=== PATIENT | male | born 1990 | race Caucasian/White ===

== ENCOUNTER 2017-03-28 13:28 | Inpatient (IN) | payer OTHER ==
[~2017-03-28] VITALS: Ht 177.8 cm; Wt 67.8 kg
[2017-03-28 15:00] VITALS: BP 115/70
--- NOTE | 2017-03-28 15:20 | NUR ---
26 year old MALE admitted to room # 427 for stabilization. Reports an addiction to HEROIN AND FENTANYL last used 24 HRS hours prior to admission. Compliant with admission procedure. ASSESSMENT COMPLETE. SKIN INTACT WITH NO WOUNDS. PT NOT A CANDIDATE FOR PNEUMO VACCINATION. WANTS FLU VACCINATION ON DISCHARGE. HOME MEDICATIONS VERIFIED WITH PHARMACIST AT [facility] IN [facility]. DR GUERRA NOTIFIED.
[2017-03-28 15:50] LABS: BASO % 0.5 % (0.0-1.0); EOS # 0.2 10*3/uL (0.0-0.4); EOS % 2.7 % (1.0-4.0); HEMATOCRIT 42.9 % (42.0-52.0); HEMOGLOBIN 14.3 g/dl (14.0-18.0); LYMPH # 2.8 10*3/uL (1.3-4.4); LYMPH % 44.5 % (27.0-41.0); MEAN CELL VOLUME 92.5 fl (80.0-94.0); MEAN CORPUSCULAR HGB 30.8 pg (27.0-31.0); MEAN CORPUSCULAR HGB CONC 33.3 g/dl (33.0-37.0); MEAN PLATELET VOLUME 9.5 fl (9.6-12.3); MONO # 0.7 10*3/uL (0.1-1.0); MONO % 11.1 % (3.0-9.0); NEUT # 2.6 10*3/uL (2.3-7.9); PLATELET COUNT AUTOMATED 193 10*3/uL (130-400); RED BLOOD COUNT 4.64 10*6/uL (4.50-5.90); WHITE BLOOD COUNT 6.4 10*3/uL (4.8-10.8)
[2017-03-28] MEDS ORDERED: GABAPENTIN600 MG PO (15:56)
[2017-03-28 16:05] LABS: ALBUMIN 3.1 gm/dl (3.1-4.5); ALKALINE PHOSPHATASE 68 U/L (45-117); BUN 8 mg/dl (7-24); CHLORIDE 104 mmol/L (98-107); CREATININE 0.71 mg/dL (0.70-1.30); LIPASE 66 U/L (73-393); POTASSIUM 3.9 mmol/L (3.5-5.1); SGOT/AST 24 IU/L (3-35); SGPT/ALT 36 U/L (12-78); SODIUM 139 mmol/L (136-145); TOTAL PROTEIN 6.7 gm/dL (6.4-8.2)
[2017-03-28 16:09] LABS: ETHYL ALCOHOL < 3.0 mg/dl (<3)
--- NOTE | 2017-03-28 16:10 | NUR ---
SPOKE TO DR GUERRA AND REQUESTED NICORETTE INHALER FOR PT.
[2017-03-28 16:15] LABS: BILIRUBIN 1+ (NEGATIVE); BLOOD NEGATIVE (NEGATIVE); CLARITY CLEAR (CLEAR); COLOR YELLOW (YELLOW); GLUCOSE NEGATIVE (NEGATIVE); KETONE NEGATIVE (NEGATIVE); LEUKO ESTERASE NEGATIVE (NEGATIVE); NITRITE NEGATIVE (NEGATIVE); SPECIFIC GRAVITY 1.025 (1.005-1.030); UROBILINOGEN 0.2 E.U./dl (0.2-1.0)
[2017-03-28 16:23] LABS: URINE AMPHETAMINES < 1000 (1000ng/ml); URINE BARBITURATES < 200 (200ng/ml); URINE BENZODIAZEPINES < 200 (200ng/ml); URINE CANNABINOIDS (THC) < 50 (50ng/ml); URINE COCAINE < 300 (300ng/ml); URINE METHADONE < 300 (300ng/ml); URINE OPIATES > 300 (300ng/ml)
[2017-03-28 16:25] LABS: URINE PHENCYCLIDINE < 25 (25ng/ml)
--- NOTE | 2017-03-28 16:25 | NUR ---
D/C PLANNING: PATIENT STATED THAT HE IS PLANNING ON GOING INTO A [facility] IN [place] AND IS ALSO LOOKING INTO IOP ALSO. PATIENT IS AWARE THAT TRANSPORATION IS HIS RESPONSIBILITY AFTER DISCHARGE. STANLEY BARRIENTOS B.A. CUSTOMER TRAINING SPECIALIST
[2017-03-28 16:31] LABS: BACTERIA 2+; CALCIUM OXALATE CRYSTALS 1+; MUCOUS TRACE; RBC 0-2 rbc/hpf (0-2)
--- NOTE | 2017-03-28 17:25 | NUR ---
PT GIVEN REQUIP, ROBAXIN, AND VISTARIL FOR REPORTED SYMPTOMS OF ANXIETY, MUSCLE PAINS AND RESTLESS LEGS.
[2017-03-28 20:00] VITALS: BP 125/63
--- NOTE | 2017-03-28 23:00 | NUR ---
LAB RESULTS AND ORDERS REVIEWED.
[2017-03-29] VITALS: BP 117/68
[2017-03-29 04:00] VITALS: BP 119/64
[2017-03-29 08:00] VITALS: BP 132/91
--- NOTE | 2017-03-29 08:20 | NUR ---
Patient displaying withdrawal symptoms, including: anxiety, restlessness, and muscle aches. Scheduled subutex provided. Will continue to monitor medication effectiveness.
--- NOTE | 2017-03-29 09:20 | NUR ---
PT COMPLAINING OF ABD PAIN, MUSCLE ACHES, AND RESTLESSNESS. MEDICATED WITH ROBAXIN, VISTARIL, AND BENTYL. WILL MONITOR FOR EFFECTIVENESS.
[2017-03-29 12:00] VITALS: BP 132/80
--- NOTE | 2017-03-29 12:00 | NUR ---
PT RESTING IN BED, NO DISTRESS NOTED. PT STATES SOME REDUCTION IN WITHDRAWAL SYMPTOMS. WILL CONTINUE TO MONITOR.
--- NOTE | 2017-03-29 15:28 | NUR ---
Patient displaying withdrawal symptoms, including: irritability, anxiousness, restlessness and muscle aches. Scheduled/PRN medications provided. Will continue to monitor medication effectiveness.
[2017-03-29 16:00] VITALS: BP 142/85
--- NOTE | 2017-03-29 18:00 | NUR ---
PT RESTING IN BED, NO DISTRESS NOTED. CALL LIGHT TERESSA CUNNINGHAM.
[2017-03-29 20:00] VITALS: BP 122/75
--- NOTE | 2017-03-29 20:00 | NUR ---
PATIENT RESTING IN BED. A&O X3. PLEASANT AND COOPERATIVE WITH CARE, RESPIRATIONS EASY/REG, NO SXS OF DISTRESS. SEE SHIFT ASSESSMENT. CALL LIGHT IN REACH. WILL MONITOR.
--- NOTE | 2017-03-29 20:06 | NUR ---
MEDICATED WITH PRN MOTRIN ORDERED FOR PATIENT C/O BACK PAIN RATED A 10
--- NOTE | 2017-03-29 21:35 | NUR ---
Patient reports the following symptoms of withdrawal: body aches, leg pain, nausea and cravings. Patient given scheduled/PRN medication to control withdrawal symptoms. Close observation will be maintained.
--- NOTE | 2017-03-29 22:45 | NUR ---
Patient resting. Responding to scheduled medications with fewer complaints of pain and anxiety.
[2017-03-30] VITALS: BP 126/76
--- NOTE | 2017-03-30 03:27 | NUR ---
24 HOUR CHART CHECK COMPLETE
[2017-03-30 08:00] VITALS: BP 122/66
[2017-03-30 09:40] VITALS: BP 145/63
[2017-03-30 12:00] VITALS: BP 113/64
--- NOTE | 2017-03-30 12:08 | NUR ---
PATIENT COMFORTABLE WITHOUT ANY C/O WITHDRAWL SYMPTOMS. STATED HE DOES NOT NEED ANY PRN MEDICATIONS AT THIS TIME. WILL CONTINUE TO MONITOR.
[2017-03-30 16:00] VITALS: BP 126/68
--- NOTE | 2017-03-30 17:34 | NUR ---
PATIENT WAS UP TO SHOWER. SCHEDULED MEDICATIONS GIVEN. PATIENT STATES HE IS FINE AND ONLY C/O ACHINESS IN HIS LOWER BACK. HE SAID MOTRIN DIDN'T HELP AND HE WILL TOUGH IT OUT. WILL CONTINUE TO MONITOR.
--- NOTE | 2017-03-30 19:49 | NUR ---
PT RECEIVED MOTRIN AND ROBAXIN FOR C/O OF BACK PAIN AND MUSCLE ACHES.
[2017-03-30 20:00] VITALS: BP 121/75
--- NOTE | 2017-03-30 20:00 | NUR ---
ASSUMED CARE OF PATIENT. ASSESSMENT COMPLETE. MEDICATED FOR BACK PAIN, NO OTHER COMPLAINTS. PRN MEDS REVIEWED. CALL LIGHT IN REACH. WILL CONTINUE TO MONITOR.
--- NOTE | 2017-03-30 21:34 | NUR ---
PT STATES PAIN MEDS AND MUSCLES RELAXERS WERE INEFFECTIVE FOR BACK PAIN AND ACHES.
[2017-03-31] VITALS: BP 117/67
--- NOTE | 2017-03-31 02:27 | NUR ---
SLEEPING. NO DISTRESS NOTED. CALL LIGHT IN REACH. WILL CONTINUE TO MONITOR.
[2017-03-31 04:00] VITALS: BP 114/58
[2017-03-31 06:16] LABS: BASO # 0.1 10*3/uL (0.0-0.1); BASO % 0.9 % (0.0-1.0); EOS # 0.2 10*3/uL (0.0-0.4); EOS % 2.5 % (1.0-4.0); HEMATOCRIT 47.4 % (42.0-52.0); HEMOGLOBIN 15.4 g/dl (14.0-18.0); LYMPH # 2.2 10*3/uL (1.3-4.4); LYMPH % 32.8 % (27.0-41.0); MEAN CELL VOLUME 94.8 fl (80.0-94.0); MEAN CORPUSCULAR HGB 30.8 pg (27.0-31.0); MEAN CORPUSCULAR HGB CONC 32.5 g/dl (33.0-37.0); MEAN PLATELET VOLUME 10.2 fl (9.6-12.3); MONO # 0.7 10*3/uL (0.1-1.0); MONO % 10.6 % (3.0-9.0); NEUT # 3.5 10*3/uL (2.3-7.9); NEUT % 52.8 % (47.0-73.0); PLATELET COUNT AUTOMATED 211 10*3/uL (130-400); WHITE BLOOD COUNT 6.7 10*3/uL (4.8-10.8)
[2017-03-31 06:31] LABS: CREATININE 0.78 mg/dL (0.70-1.30)
[2017-03-31 08:00] VITALS: BP 115/65
[2017-03-31] MEDS ORDERED: ROPINIROLE HYD0.5 MG PO (11:05)
[2017-03-31] MEDS ORDERED: ATARAX,VISTARIL50 MG PO (11:05)
[2017-03-31] MEDS ORDERED: ZOFRAN 4 MG ED2 TAB PO (11:05)
--- NOTE | 2017-03-31 11:51 | NUR ---
[facility] Discharge instructions reviewed with patient/family. Patient receptive and verbalizes understanding. Follow-up care arranged. Written instructions given to patient/family. TREVER DOUGLAS
== END 2017-03-31 11:51 | disposition home or self-care (01) | DRG 897 ==
LOC: 4E 13:28
PROVIDERS: Hospitalist; ADMIT Internal Medicine
DX: F11.23 Opioid dependence with withdrawal (principal); E44.0 Moderate protein-calorie malnutrition; B18.2 Chronic viral hepatitis C; G40.909 Epilepsy, unspecified, not intractable, without status epilepticus; Z72.0 Tobacco use; Z71.6 Tobacco abuse counseling; Z68.21 Body mass index [BMI] 21.0-21.9, adult; Z81.3 Family history of other psychoactive substance abuse and dependence; Z91.013 Allergy to seafood; Z91.018 Allergy to other foods; Z79.899 Other long term (current) drug therapy

== ENCOUNTER 2018-02-16 15:21 | Inpatient (IN) | payer OTHER ==
[~2018-02-16] VITALS: Ht 177.8 cm; Wt 70.0 kg
--- NOTE | ~2018-02-16 | EKG ---
[place], [place] ELECTROCARDIOGRAM REPORT NAME: MAC CAICEDO UNIT #: [id number] ROOM: [facility] DOCTOR: CHIQUITA DRAFT REPORT BIRTHDATE: [birth year] [facility] Test Date: 2018-02-16 Test Time: 17:55:34 Pat Name: MAC CAICEDO Department: Room: [facility] Gender: M Inspector Missile: ADRIANA : 1990 Requested By: CT MERCER Order Number: [id number] Reading MD: Jesus Mahajan MD Measurements Intervals Matthews Rate: 77 P: 60 CO: 121 QRS: 75 QRSD: 90 T: 41 QT: 378 QTc: 428 Interpretive Statements Sinus rhythm Electronically Signed On 02-18-2018 12:00:12 PDT by Jesus Mahajan MD CM:EKGRPT:ELECTROCARDIOGRAM REPORT [id number] DRAFT REPORT CT MERCER
[~2018-02-16 15:21] MED LIST: ATARAX,VISTARIL50 MG PO; GABAPENTIN600 MG PO; ROPINIROLE HYD0.5 MG PO; ZOFRAN 4 MG ED2 TAB PO
[2018-02-16 16:58] VITALS: BP 143/93
[2018-02-16 18:20] LABS: BASO % 0.5 % (0.0-1.0); EOS # 0.2 10*3/uL (0.0-0.4); EOS % 1.8 % (1.0-4.0); HEMATOCRIT 45.2 % (42.0-52.0); HEMOGLOBIN 15.2 g/dl (14.0-18.0); LYMPH # 2.5 10*3/uL (1.3-4.4); LYMPH % 30.2 % (27.0-41.0); MEAN CELL VOLUME 92.4 fl (80.0-94.0); MEAN CORPUSCULAR HGB 31.1 pg (27.0-31.0); MEAN CORPUSCULAR HGB CONC 33.6 g/dl (33.0-37.0); MEAN PLATELET VOLUME 9.4 fl (9.6-12.3); MONO % 12.1 % (3.0-9.0); NEUT # 4.6 10*3/uL (2.3-7.9); NEUT % 55.2 % (47.0-73.0); PLATELET COUNT AUTOMATED 249 10*3/uL (130-400); RED BLOOD COUNT 4.89 10*6/uL (4.50-5.90); RED CELL DISTRI WIDTH 12.8 % (0-14.5); WHITE BLOOD COUNT 8.4 10*3/uL (4.8-10.8)
[2018-02-16 18:28] LABS: BILIRUBIN NEGATIVE (NEGATIVE); BLOOD NEGATIVE (NEGATIVE); CLARITY CLEAR (CLEAR); COLOR YELLOW (YELLOW); GLUCOSE NEGATIVE (NEGATIVE); KETONE NEGATIVE (NEGATIVE); LEUKO ESTERASE NEGATIVE (NEGATIVE); NITRITE NEGATIVE (NEGATIVE); PH 6.5 (5.0-9.0); SPECIFIC GRAVITY 1.025 (1.005-1.030)
[2018-02-16 18:34] LABS: MUCOUS TRACE
[2018-02-16 18:37] LABS: URINE AMPHETAMINES < 1000 (1000ng/ml); URINE BARBITURATES < 200 (200ng/ml); URINE BENZODIAZEPINES > 200 (200ng/ml); URINE CANNABINOIDS (THC) < 50 (50ng/ml); URINE COCAINE > 300 (300ng/ml); URINE METHADONE < 300 (300ng/ml); URINE OPIATES < 300 (300ng/ml)
[2018-02-16 18:38] LABS: URINE PHENCYCLIDINE < 25 (25ng/ml)
[2018-02-16 18:39] LABS: ALBUMIN 3.4 gm/dl (3.1-4.5); ALKALINE PHOSPHATASE 74 U/L (45-117); BUN 8 mg/dl (7-24); CHLORIDE 104 mmol/L (98-107); CREATININE 0.74 mg/dL (0.70-1.30); POTASSIUM 4.1 mmol/L (3.5-5.1); SGOT/AST 29 IU/L (3-35); SGPT/ALT 41 U/L (12-78); SODIUM 139 mmol/L (136-145); TOTAL PROTEIN 7.1 gm/dL (6.4-8.2)
[2018-02-16 18:41] LABS: ETHYL ALCOHOL < 3.0 mg/dl (<3)
[2018-02-16 20:00] VITALS: BP 128/75
[2018-02-17] VITALS: BP 119/80
[2018-02-17 08:00] VITALS: BP 120/76
[2018-02-17 12:00] VITALS: BP 146/87
[2018-02-17 16:00] VITALS: BP 123/74
[2018-02-17 20:00] VITALS: BP 130/83
[2018-02-18] VITALS: BP 129/64
[2018-02-18 08:00] VITALS: BP 126/80
[2018-02-18 12:00] VITALS: BP 112/78
[2018-02-18] MEDS ORDERED: ATIVAN1 MG PO (13:43)
[2018-02-18] MEDS ORDERED: ATARAX,VISTARIL50 MG PO (13:44)
== END 2018-02-18 14:20 | disposition home or self-care (01) | DRG 897 ==
LOC: 5E 15:21
PROVIDERS: Internal Medicine; Student in an Organized Health Care Education/Training Program
DX: F11.23 Opioid dependence with withdrawal (principal); E44.1 Mild protein-calorie malnutrition; F13.239 Sedative, hypnotic or anxiolytic dependence with withdrawal, unspecified; R00.0 Tachycardia, unspecified; F14.10 Cocaine abuse, uncomplicated; G40.409 Other generalized epilepsy and epileptic syndromes, not intractable, without status epilepticus; F41.9 Anxiety disorder, unspecified; B19.20 Unspecified viral hepatitis C without hepatic coma; E55.9 Vitamin D deficiency, unspecified; Z91.013 Allergy to seafood; Z72.0 Tobacco use; Z71.6 Tobacco abuse counseling; Z91.018 Allergy to other foods; Z79.899 Other long term (current) drug therapy; Z68.22 Body mass index [BMI] 22.0-22.9, adult